=== PATIENT | male | born 1980 | race African-American/Black ===

== ENCOUNTER 2016-12-13 00:05 | Emergency (ER) | payer SELFPAY ==
--- NOTE | 2016-12-13 01:01 | RADIOLOGY REPORT (SQ) ---
EXAM DESCRIPTION: HAND BILATERAL 3 VIEWS COMPLETED DATE/TIME: 12/13/2016 12:33 am REASON FOR STUDY: Pain s/p injury COMPARISON: None. EXAM PARAMETERS: NUMBER OF VIEWS: Three views right hand. Three views left hand. TECHNIQUE: AP, lateral and oblique radiographic images acquired of bilateral hands. LIMITATIONS: None. FINDINGS: RIGHT HAND: MINERALIZATION: Normal. BONES: No acute fracture or dislocation. No worrisome bone lesions. No significant osteophytes. JOINTS: No erosions. No dana-articular osteopenia. No chondrocalcinosis. SOFT TISSUES: Moderate swelling at the dorsal aspect of bilateral metacarpophalangeal joints. OTHER: No other significant finding. LEFT HAND: MINERALIZATION: Normal. BONES: No acute fracture or dislocation. No worrisome bone lesions. No significant osteophytes. JOINTS: No erosions. No dana-articular osteopenia. No chondrocalcinosis. SOFT TISSUES: Moderate swelling at the dorsal aspect of bilateral metacarpophalangeal joints. OTHER: No other significant finding. IMPRESSION: No evidence of acute bone or joint defect. Moderate swelling. TECHNICAL DOCUMENTATION: JOB ID: [id number] [employer]- All Rights Reserved
[2016-12-13] MEDS ORDERED: HYDROCODONE/ACETAMINOPHEN 5-325 MG 6 TAB/DSPK PO PRN (01:30)
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
[2016-12-13 01:49] VITALS: BP 132/88
== END 2016-12-13 01:47 | disposition home or self-care (01) ==
LOC: ER 00:05
DX: M79.642 Pain in left hand (principal); M79.641 Pain in right hand; S60.222A Contusion of left hand, initial encounter; S60.221A Contusion of right hand, initial encounter; X58.XXXA Exposure to other specified factors, initial encounter; V18.4XXA Pedal cycle driver injured in noncollision transport accident in traffic accident, initial encounter; Y93.55 Activity, bike riding
CPT/HCPCS: 99283

== ENCOUNTER 2020-04-12 01:04 | Emergency (ER) | payer SELFPAY | END 2020-04-12 01:46 | disposition left against medical advice (07) | LOC: ER 01:04 | DX: Z53.21 Procedure and treatment not carried out due to patient leaving prior to being seen by health care provider (principal) ==